=== PATIENT | male | born 1980 | race Asian ===

== ENCOUNTER 2017-03-16 12:31 | Emergency (ER) | payer OTHER ==
[~2017-03-16] VITALS: Ht 177.8 cm; Wt 68.2 kg
[2017-03-16 12:33] VITALS: TEMP 36.3; Ht 177.8 cm; Wt 68.2 kg
[2017-03-16] MEDS ORDERED: IBUPROFEN 600 MG TAB PO STA (12:46)
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
[2017-03-16 13:20] VITALS: BP 132/75; PULSE 88; O2SAT 98
== END 2017-03-16 13:21 | disposition home or self-care (01) ==
LOC: C.EDB 12:32 → C.EDD 13:21
DX: S20.212A Contusion of left front wall of thorax, initial encounter (principal); V43.53XA Car driver injured in collision with pick-up truck in traffic accident, initial encounter; Y92.488 Other paved roadways as the place of occurrence of the external cause